=== PATIENT | female | born 1980 | race Hispanic/Latino ===

== ENCOUNTER 2017-12-25 21:09 | Emergency (ER) | payer OTHER ==
[2017-12-25 21:34] VITALS: BP 124/85; PULSE 73; RESP 18; TEMP 98.3; O2SAT 98
[2017-12-25] MEDS ORDERED: Tdap Vaccine 0.5 ml Vial (10-64 yrs) IM ONE ×2 (22:15→22:22)
--- NOTE | 2017-12-25 22:19 | ED PDOC ---
Upper Extremity Pain/Injury Time Seen by Provider: 12/25/17 21:51 Chief Complaint (Nursing): Finger,Hand,&Wrist History Per: Patient History/Exam Limitations: no limitations Additional Complaint(s): 29-year-old female sustained a laceration to the distal volar aspect of her left second digit when she was slicing carrots prior to arrival. Denies any numbness, decrease in range of motion, or any other injury. Of note patient is not up-to-date with her tetanus. Past Medical History Vital Signs: Last Vital Signs Temp 98.3 F 12/25/17 21:29 Pulse 73 12/25/17 21:29 Resp 18 12/25/17 21:29 BP 124/85 12/25/17 21:29 Pulse Ox 98 12/25/17 21:29 - Medical History PMH: Anxiety - Family History Family History: States: Unknown Family Hx - Allergies Allergies/Adverse Reactions: Allergies Allergy/AdvReac Type Severity Reaction Status Date / Time Penicillins Allergy unknown Verified 12/25/17 21:28 childhood allergy Review of Systems Constitutional: Negative for: Fever, Malaise Musculoskeletal: Negative for: Arm Pain, Hand Pain Skin: Positive for: Other (laceration). Negative for: Rash Neurological: Negative for: Weakness, Numbness Physical Exam - Physical Exam Comments: GENERAL APPEARANCE: Patient is awake, alert, oriented x 3, in no acute distress. SKIN: Warm, (-) rash, (-) lesions. UPPER EXTREMITY: (+) 1 cm flap like laceration to the distal volar aspect of the L 2nd digit, (-) tenderness, (-) swelling, (-) ecchymosis; (-) crepitus, (- ) deformity. Tendon function intact. (-) distal neurovascular deficit. 2 point discrimination intact. Remainder of hand, digits and wrist: (-) injury. - ECG O2 Sat by Pulse Oximetry: 98 Medical Decision Making Medical Decision Making: Plan : - Tdap IM - Dermabond Patient tolerated the procedure well, instructed on proper wound care. Advised to follow up with primary care physician in 1-2 days without fail. Return to the emergency room at any time for any new or worsening symptoms. Patient states she fully agrees with and understands discharge instructions. States that she agrees with the plan and disposition. Verbalized and repeated discharge instructions and plan. I have given the patient opportunity to ask any additional questions. Procedures - Laceration/Wound Repair L 2nd digit Wound Length (cm): 1 (irrigated with water) Wound's Depth, Shape: flap Wound Explored: clean Wound Repaired With: Skin adhesive Wound Complexity: Simple Progress: Pt tolerated the procedure well. Clean dressing applied. Disposition - Clinical Impression Clinical Impression: Finger laceration - Patient ED Disposition Is Patient to be Admitted: No Counseled Patient/Family Regarding: Diagnosis, Need For Followup - Disposition Disposition: Routine/Home Disposition Time: 20:20 Condition: STABLE Additional Instructions: Thank you for letting us take care of you today. You were treated for finger laceration. The emergency medical care you received today was directed at your acute symptoms. It may take several days for your symptoms to resolve. Return to the Emergency Department if your symptoms worsen, do not improve, or if you have any other problems. Please contact your doctor in 2 days for re-evaluation and follow up. Bring any paperwork you were given at discharge with you along with any medications you are taking to your follow up visit. Our treatment cannot replace ongoing medical care by a primary care provider (PCP) outside of the emergency department. Thank you for allowing the [facility] team to be part of your care today. 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
== END 2017-12-25 23:00 | disposition home or self-care (01) ==
LOC: H.ER 21:09
DX: S61.211A Laceration without foreign body of left index finger without damage to nail, initial encounter (principal); W26.0XXA Contact with knife, initial encounter; Y92.89 Other specified places as the place of occurrence of the external cause; F41.9 Anxiety disorder, unspecified; Z88.0 Allergy status to penicillin